=== PATIENT | female | born 1995 | race Caucasian/White ===

== ENCOUNTER 2019-08-29 00:11 | Inpatient (IN) | payer OTHER ==
[~2019-08-29] VITALS: Ht 167.6 cm; Wt 83.0 kg
--- NOTE | 2019-08-29 14:29 | PR ---
[facility] [address] [facility] [place], [place] [address] Signed Progress Notes IP Datetime Report Generated by CPN: 08/29/2019 14:29 PROGRESS NOTES: [id number] Impression: Normal progression of labor; Reassuring heart rate Plan: Continue present management VITAL SIGNS: [id number] Vital Signs: Reviewed EXAM: [id number] Dilatation: 7.0 Effacement: 80 Station: -1 Uterine Contractions: Irregular MEMBRANES: [id number] Membrane Status: Bulging Comments: Pt seen and evaluated. Doing well. Fetus A: [id number] FHR Baseline: 120 Variability: Moderate 6-25bpm Accelerations: 15X15 Decelerations: None FHR Category: Category I Presentation: Vertex Comments on Fetus A: No evidence of metabolic acidosis Fetus B: [id number] Signing Physician: Radha Riley DO Copies: ~ *Electronically Signed* 08/29/19 1428 RADHA RILEY DO PATIENT NAME: AKTIUSKA LEVI [facility] PROGRESS NOTE DATE OF : [birth year] PHYSICIAN: RADHA RILEY DO RPT #: [id number] REPORT IS CONFIDENTIAL AND NOT TO BE RELEASED WITHOUT AUTHORIZATION
--- NOTE | 2019-08-29 17:12 | PR ---
[facility] [address] [place], [place] [address] Signed Progress Notes IP Datetime Report Generated by CPN: 08/29/2019 17:11 PROGRESS NOTES: [id number] Impression: Normal progression of labor; Reassuring heart rate Plan: Continue present management; Anticipate Vaginal Delivery Informed Consent Obtain: Vaginal Delivery VITAL SIGNS: [id number] Vital Signs: Reviewed EXAM: [id number] Dilatation: 9.5 Effacement: 90 Station: 0 Uterine Contractions: Not tracing well, but q 1-2 min per pt MEMBRANES: [id number] Membrane Status: Bulging Comments: Pt seen and examined. Doing well. C/O increased pelvic pressure. Just checked by RN who reports anterior lip and 0 station. Will await complete dilation and anticipate pushing soon. All questions answered Fetus A: [id number] FHR Baseline: 125 Variability: Moderate 6-25bpm Accelerations: 15X15 Decelerations: None FHR Category: Category I Presentation: Vertex Comments on Fetus A: No evidence of metabolic acidosis Fetus B: [id number] Signing Physician: Radha Riley DO Copies: ~ *Electronically Signed* 08/29/19 3186 RADHA RILEY DO PATIENT NAME: KATIUSKA LEVI PROGRESS NOTE DATE OF : [birth year] PHYSICIAN: RADHA RILEY DO RPT #: [id number] REPORT IS CONFIDENTIAL AND NOT TO BE RELEASED WITHOUT AUTHORIZATION
--- NOTE | 2019-08-31 08:02 | PR ---
[facility] [address] [facility] [place], [place] [address] Signed PP Progress Notes Datetime Report Generated by CPN: 08/31/2019 08:02 SUBJECTIVE: [id number] Pain: Within normal limits Nausea/Vomiting: Denies Flatus: Yes Bowel Movement: No Vital Signs: [id number] Vital Signs: Reviewed; Within Normal Limits EXAM: [id number] Cardiovascular: Normal Respiratory: Normal Abdomen/Uterus: Normal Lochia: Normal Vulva/Perineum: Not Done Breasts: Not Done CVA Tenderness: Normal Extremities: Normal Incision: Not Applicable Progress: Normal Exam Comments: Fundus firm U-2 IMPRESSION/PLAN/PROCEDURES: [id number] Impression: Normal progression Plan: Discharge Progress Notes: Pt seen and examined. Doing well. Ambulating, voiding, and tolerating full diet. Pain and lochia minimal. Complaining for decreased bladder control but no UTI sx. well. Desires d/c home when baby cleared by peds. Reviewed d/c instructions in detail. Signing Physician: Radha Riley DO Copies: ~ *Electronically Signed* 08/31/19 0802 RADHA RILEY DO PATIENT NAME: KATIUSKA LEVI PROGRESS NOTE DATE OF : [birth year] PHYSICIAN: RADHA RILEY DO RPT #: [id number] REPORT IS CONFIDENTIAL AND NOT TO BE RELEASED WITHOUT AUTHORIZATION
== END 2019-08-31 20:30 | disposition home or self-care (01) | DRG 807 ==
LOC: FBC 00:11
PROVIDERS: ADMIT Obstetrics & Gynecology
PROC: 10E0XZZ Delivery of Products of Conception, External Approach (ICD-10-PCS; principal; 2019-08-29)
PROC: 0KQM0ZZ Repair Perineum Muscle, Open Approach (ICD-10-PCS; 2019-08-29)
PROC: 10907ZC Drainage of Amniotic Fluid, Therapeutic from Products of Conception, Via Natural or Artificial Opening (ICD-10-PCS; 2019-08-29)
PROC: 00HU33Z Insertion of Infusion Device into Spinal Canal, Percutaneous Approach (ICD-10-PCS; 2019-08-29)
PROC: 3E0R3BZ Introduction of Anesthetic Agent into Spinal Canal, Percutaneous Approach (ICD-10-PCS; 2019-08-29)
DX: O99.824 Streptococcus B carrier state complicating childbirth (principal); Z37.0 Single live birth; Z3A.39 39 weeks gestation of pregnancy; O69.81X0 Labor and delivery complicated by cord around neck, without compression, not applicable or unspecified; O70.1 Second degree perineal laceration during delivery; O69.2XX0 Labor and delivery complicated by other cord entanglement, with compression, not applicable or unspecified; O99.02 Anemia complicating childbirth; D50.9 Iron deficiency anemia, unspecified; Z88.0 Allergy status to penicillin
CPT/HCPCS: 01960; 36415; 85027; A9270; J2590; J2795; J3010; J3490; J7121

== ENCOUNTER 2021-02-04 16:34 | Inpatient (IN) | payer OTHER ==
[~2021-02-04] VITALS: Ht 167.6 cm; Wt 76.2 kg
--- NOTE | 2021-02-05 16:41 | PR ---
[facility] [address] [facility] [place], [place] [address] Signed Progress Notes IP Datetime Report Generated by CPN: 02/05/2021 16:41 PROGRESS NOTES: [id number] Impression: Normal Progression of Labor Procedures: Sterile Vag Exam Plan: Continue Present Management; Anticipate Vaginal Delivery Informed Consent Obtain: Vaginal Delivery VITAL SIGNS: [id number] Vital Signs: Reviewed; Within Normal Limits EXAM: [id number] Dilatation: 8.0 Effacement: 90 Station: -1 Contractions: Rare MEMBRANES: [id number] Comments: Pt complete +2. FHT reassuring. Anticipate soon FETUS A: [id number] FHR Baseline: 125 Variability: Moderate 6-25bpm Accelerations: 15X15 Decelerations: None FHR Category: Category I Presentation: Vertex Comments on Fetus A: No evidence of metabolic acidosis FETUS B: [id number] Signing Physician: Radha Riley DO Copies: ~ *Electronically Signed* 02/05/21 1641 RADHA RILEY DO PATIENT NAME: SEEMA LEVINEY [facility] PROGRESS NOTE DATE OF : [birth year] PHYSICIAN: RADHA RILEY DO [facility] #: [id number] REPORT IS CONFIDENTIAL AND NOT TO BE RELEASED WITHOUT AUTHORIZATION
--- NOTE | 2021-02-06 08:05 | PR ---
[facility] [address] [facility] [place], [place] [address] Signed PP Progress Notes Datetime Report Generated by CPN: 02/06/2021 08:05 SUBJECTIVE: [id number] Pain: Within Normal Limits Nausea/Vomiting: Denies Flatus: No Bowel Movement: No Vital Signs: [id number] Vital Signs: Reviewed; Within Normal Limits EXAM: Ongoing Cardiovascular: Normal Respiratory: Normal Lochia: Normal Extremities: Normal Progress: Normal Exam Comments: NAD, sitting up next to bed RRR No dyspnea Abd SNTND, FFBU Ext no edema IMPRESSION/PLAN/PROCEDURES: [id number] Impression: Normal Progression Plan: Continue Present Management Progress Notes: PPD#1 s/p Progressing well , hgb 10.2 from 10.8 on admission Would like to go home today at 24 hours Lochia light, pain well controlled with motrin Anticipate DC to home this evening at 24h NFP for contraception Signing Physician: Jose Miguel Aguilar DO Copies: ~ *Electronically Signed* 02/06/21804 JOSE MIGUEL AGUILAR DO PATIENT NAME: KATIUSKA LEVI PROGRESS NOTE DATE OF : [birth year] PHYSICIAN: JOSE MIGUEL AGUILAR DO RPT #: [id number] REPORT IS CONFIDENTIAL AND NOT TO BE RELEASED WITHOUT AUTHORIZATION
== END 2021-02-06 17:50 | disposition home or self-care (01) | DRG 807 ==
LOC: FBC 02-05 00:08
PROVIDERS: ADMIT Obstetrics & Gynecology; ATTEND Obstetrics & Gynecology
PROC: 10E0XZZ Delivery of Products of Conception, External Approach (ICD-10-PCS; principal; 2021-02-05)
PROC: 10907ZC Drainage of Amniotic Fluid, Therapeutic from Products of Conception, Via Natural or Artificial Opening (ICD-10-PCS; 2021-02-05)
PROC: 0UQMXZZ Repair Vulva, External Approach (ICD-10-PCS; 2021-02-05)
PROC: 3E0R3BZ Introduction of Anesthetic Agent into Spinal Canal, Percutaneous Approach (ICD-10-PCS; 2021-02-05)
PROC: 00HU33Z Insertion of Infusion Device into Spinal Canal, Percutaneous Approach (ICD-10-PCS; 2021-02-05)
DX: O99.824 Streptococcus B carrier state complicating childbirth (principal); Z37.0 Single live birth; O69.81X0 Labor and delivery complicated by cord around neck, without compression, not applicable or unspecified; Z3A.39 39 weeks gestation of pregnancy; O71.82 Other specified trauma to perineum and vulva
CPT/HCPCS: 01960; 85027; A9270; J2590; J2795; J3010; J3490; J7121; U0003

== ENCOUNTER 2024-11-16 06:15 | Inpatient (IN) | payer OTHER ==
[~2024-11-16] VITALS: Ht 167.6 cm; Wt 82.6 kg
[2024-11-16] MEDS ORDERED: LACTATED RINGER'S 1,000 ML IV PRN (06:30)
[2024-11-16] MEDS ORDERED: MAGNESIUM HYDROXIDE/AL HYDROX 30 ML CUP PO PRN ×2 (06:30→17:15)
[2024-11-16] MEDS ORDERED: LACTATED RINGER'S 1,000 ML IV SCH (06:30)
[2024-11-16] MEDS ORDERED: CALCIUM CARBONATE 500 MG CHEW PO PRN ×2 (06:30→17:15)
[2024-11-16 07:13] LABS: AMPHETAMINES, URINE NEGATIVE (NEGATIVE); BARBITURATES, URINE NEGATIVE (NEGATIVE); BENZODIAZEPINE, URINE NEGATIVE (NEGATIVE); BUPRENORPHINE, URINE NEGATIVE (NEGATIVE); CANNABINOID, URINE NEGATIVE (NEGATIVE); COCAINE, URINE NEGATIVE (NEGATIVE); ECSTASY, URINE NEGATIVE (NEGATIVE); FENTANYL, URINE NEGATIVE (NEGATIVE); METHADONE, URINE NEGATIVE (NEGATIVE); OPIATES, URINE NEGATIVE (NEGATIVE); OXYCODONE, URINE NEGATIVE (NEGATIVE); PHENCYCLIDINE, URINE NEGATIVE (NEGATIVE)
[2024-11-16 07:17] LABS: HEMATOCRIT 36.7 % (34.1-44.9); HEMOGLOBIN 12.5 g/dL (11.2-15.7); MCH 28.9 PG (25.6-32.2); MCHC 34.1 g/dL (32.2-35.5); MCV 84.8 fL (79.4-94.8); RBC 4.33 M/uL (3.93-5.22)
[2024-11-16] MEDS ORDERED: OXYTOCIN/0.9 % SODIUM CHLORIDE 500 ML IV SCH ×2 (07:45→17:15)
[2024-11-16 07:56] LABS: ABO B; RH POSITIVE
[2024-11-16 07:57] LABS: ANTIBODY SCREEN NEGATIVE
[2024-11-16 08:17] VITALS: BP 118/73
[2024-11-16] MEDS ORDERED: ACETAMINOPHEN 500 MG TAB PO ONE (09:15)
[2024-11-16] MEDS ORDERED: ROPIVACAINE 0.2% 200 ML BAG ONE (11:34)
[2024-11-16] MEDS ORDERED: LACTATED RINGER'S 2,000 ML IV ONE ×2 (12:30)
[2024-11-16] MEDS ORDERED: ROPIVACAINE 0.2% 200 ML BAG EPIDURAL SCH ×2 (12:30)
[2024-11-16] MEDS ORDERED: LACTATED RINGER'S 500 ML IV PRN ×2 (12:30)
[2024-11-16] MEDS ORDERED: ePHEDrine sulfate 5 MG/ML SYRINGE IV PRN ×2 (12:30)
[2024-11-16] MEDS ORDERED: ondansetron HCL 4 MG/2 ML VIAL IV PRN (13:30)
[2024-11-16] MEDS ORDERED: MAGNESIUM HYDROXIDE 30 ML UDC PO PRN (17:15)
[2024-11-16] MEDS ORDERED: LIDOCAINE 2% VISCOUS 6 ML SYR TOP ONE ×2 (17:15)
[2024-11-16] MEDS ORDERED: WITCH HAZEL/GLYCERIN 1 EA PAD TOP PRN (17:15)
[2024-11-16] MEDS ORDERED: ACETAMINOPHEN 325 MG TAB PO PRN (17:15)
[2024-11-16] MEDS ORDERED: HYDROCORTISONE ACETATE 25 MG SUPP PR PRN (17:15)
[2024-11-16] MEDS ORDERED: BENZOCAINE 60 ML AEROSOL TOP PRN (17:15)
[2024-11-16] MEDS ORDERED: IBUPROFEN 600 MG TAB PO PRN (17:15)
[2024-11-16 17:24] VITALS: BP 118/71
[2024-11-16] MEDS ORDERED: SENNOSIDES/DOCUSATE 1 EA TAB PO SCH (21:00)
== END 2024-11-17 17:08 | disposition home or self-care (01) | DRG 807 ==
LOC: FBC 06:15
PROVIDERS: ADMIT Advanced Practice Midwife; ATTEND Advanced Practice Midwife
PROC: 10E0XZZ Delivery of Products of Conception, External Approach (ICD-10-PCS; principal; 2024-11-16)
PROC: 3E0R3BZ Introduction of Anesthetic Agent into Spinal Canal, Percutaneous Approach (ICD-10-PCS; 2024-11-16)
PROC: 00HU33Z Insertion of Infusion Device into Spinal Canal, Percutaneous Approach (ICD-10-PCS; 2024-11-16)
PROC: 3E033VJ Introduction of Other Hormone into Peripheral Vein, Percutaneous Approach (ICD-10-PCS; 2024-11-16)
DX: O80 Encounter for full-term uncomplicated delivery (principal); Z37.0 Single live birth; Z3A.39 39 weeks gestation of pregnancy
CPT/HCPCS: 36415; 80307; 85025; 85027; 86850; 86900; 86901; A9270; J2405; J7121